=== PATIENT | male | born 1940 | race African-American/Black ===

== ENCOUNTER 2017-03-08 14:06 | Emergency (ER) | payer MEDICARE, MEDICAID ==
[~2017-03-08] VITALS: Ht 172.7 cm; Wt 81.6 kg
[~2017-03-08 14:06] MED LIST: ARICEPT10 MG GT; LOPRESSOR25 M1 GT; LORAZEPAM0.5 MG GT; LUPRON DEPOT7.5 MG IM; NAMENDA5 MG GT
[2017-03-08 14:24] VITALS: BP 129/63
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
[2017-03-08 15:00] VITALS: BP 129/63
--- NOTE | 2017-03-09 10:23 | Diagnostic Imaging Report ---
Indication: TUBE PLCMT Technique: Supine view of the abdomen after injection of water-soluble contrast into gastrostomy Comparison: none Findings: Contrast opacifies the stomach. No contrast extravasation is demonstrated. The bowel gas pattern is unremarkable. Bowel gas pattern is unremarkable. No unusual masses or calcifications. Impression: Satisfactory position of gastrostomy tube This agrees with the preliminary interpretation provided overnight by [employer].
== END 2017-03-08 15:30 ==
LOC: EDBD 14:06 → EMR 15:30
DX: K94.23 Gastrostomy malfunction (principal); I10 Essential (primary) hypertension; Z85.9 Personal history of malignant neoplasm, unspecified; F03.90 Unspecified dementia, unspecified severity, without behavioral disturbance, psychotic disturbance, mood disturbance, and anxiety; Z87.820 Personal history of traumatic brain injury
CPT/HCPCS: 43760; 74000; 99284

== ENCOUNTER 2017-05-09 11:00 | Emergency (ER) | payer MEDICARE, OTHER ==
[~2017-05-09] VITALS: Ht 182.9 cm; Wt 77.1 kg
[2017-05-09] MEDS ORDERED: LUPRON DEPOT7.5 MG IM (11:11)
[2017-05-09] MEDS ORDERED: CRANBERRY500 M3 GT (11:11)
[2017-05-09] MEDS ORDERED: DONEPEZIL HCL5 MG GT (11:11)
[2017-05-09 11:13] VITALS: BP 152/58
[2017-05-09] MEDS ORDERED: COLACE100 MG GT (11:13)
[2017-05-09] MEDS ORDERED: CLARITIN10 M2 ORAL (11:13)
[2017-05-09] MEDS ORDERED: TRAMADOL HCL50 MG ORAL (11:15)
[2017-05-09] MEDS ORDERED: GLUCOSAMINE MS480 ML GT (11:15)
[2017-05-09] MEDS ORDERED: IBUPROFEN600 MG GT (11:18)
[2017-05-09] MEDS ORDERED: TRAMADOL HCL50 MG GT (11:18)
[2017-05-09] MEDS ORDERED: ACETAMINOPHEN325 M1 GT (11:18)
[2017-05-09] MEDS ORDERED: TAMSULOSIN HCL0.4 MG ORAL (11:18)
[2017-05-09] MEDS ORDERED: AMBIEN5 MG GT (11:19)
[2017-05-09 12:22] VITALS: BP 120/65
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
[2017-05-09 12:41] VITALS: BP 122/67
[2017-05-09 13:49] VITALS: BP 129/74
--- NOTE | 2017-05-10 10:38 | Diagnostic Imaging Report ---
Indication: Assess gastric tube placement Comparison: 03/08/2017 Findings: Single view of the abdomen is obtained. Reportedly, 50 cc of Gastrografin was injected via the indwelling gastrostomy tube. Abdomen x-ray shows contrast within the stomach lumen and within the gastrostomy tube. No extravasation of contrast is seen outside of the stomach lumen. There is a nonobstructive bowel gas pattern. Impression: Gastrostomy tube appears in good position with injected contrast in the stomach.
== END 2017-05-09 13:53 ==
LOC: EDBD 11:00 → EMR 11:23
DX: K94.23 Gastrostomy malfunction (principal); I10 Essential (primary) hypertension; Z85.46 Personal history of malignant neoplasm of prostate; F01.50 Vascular dementia, unspecified severity, without behavioral disturbance, psychotic disturbance, mood disturbance, and anxiety
CPT/HCPCS: 43760; 74000; 99283; Q9963

== ENCOUNTER 2017-07-13 12:54 | Emergency (ER) | payer MEDICARE, OTHER ==
[~2017-07-13] VITALS: Ht 182.9 cm; Wt 79.4 kg
[~2017-07-13 12:54] MED LIST changes: +ACETAMINOPHEN325 M1 GT; +AMBIEN5 MG GT; +CLARITIN10 M2 ORAL; +COLACE100 MG GT; +CRANBERRY500 M3 GT; +DONEPEZIL HCL5 MG GT; +GLUCOSAMINE MS480 ML GT; +IBUPROFEN600 MG GT; +TAMSULOSIN HCL0.4 MG ORAL; +TRAMADOL HCL50 MG GT; +TRAMADOL HCL50 MG ORAL
--- NOTE | 2017-07-13 13:56 | Diagnostic Imaging Report ---
Indication: Colostomy tube replaced Technique: XRAY Abdomen 1v; 30 cc of nondilated Gastrografin was injected via the gastrostomy tube. Comparison: 05/09/2017 Findings: Contrast is noted within the stomach lumen and within the gastrostomy tube. No extravasation of contrast is seen outside the stomach lumen. Gas pattern is nonobstructed. Imaged lower lungs are grossly clear. No acute osseous abnormality appreciated. Impression: Gastrostomy tube appears in good position with injected contrast in the stomach. No extravasation of contrast noted.
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
[2017-07-13 15:00] VITALS: BP 123/85
[2017-07-13 15:30] VITALS: BP 123/85
== END 2017-07-13 15:30 ==
LOC: EDBD 12:54 → EMR 13:41
DX: K94.23 Gastrostomy malfunction (principal); I10 Essential (primary) hypertension; Z85.46 Personal history of malignant neoplasm of prostate; Z87.820 Personal history of traumatic brain injury; F01.50 Vascular dementia, unspecified severity, without behavioral disturbance, psychotic disturbance, mood disturbance, and anxiety
CPT/HCPCS: 43760; 74018; 99283; Q9963

== ENCOUNTER 2017-10-27 13:31 | Emergency (ER) | payer MEDICARE, OTHER ==
[~2017-10-27] VITALS: Ht 188 cm; Wt 90.7 kg
[2017-10-27] MEDS ORDERED: Gastrograffin 30ml ORAL ONE (13:45)
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
[2017-10-27 14:15] VITALS: BP 110/65
--- NOTE | 2017-10-27 14:22 | Diagnostic Imaging Report ---
Indication: Gastrostomy tube check Comparison: None Single view of the abdomen obtained Findings: Contrast was instilled through the indwelling gastrostomy. The tip is projected over the mid body of the stomach in good position. There is contrast noted in the stomach without evidence of extravasation. IMPRESSION: Unremarkable gastrostomy check
== END 2017-10-27 14:16 | disposition home or self-care (01) ==
LOC: EDBD 13:31 → EDUNIT# 13:31 → EMR 14:01
DX: K94.23 Gastrostomy malfunction (principal); Y83.3 Surgical operation with formation of external stoma as the cause of abnormal reaction of the patient, or of later complication, without mention of misadventure at the time of the procedure; I10 Essential (primary) hypertension; Z85.46 Personal history of malignant neoplasm of prostate; F03.90 Unspecified dementia, unspecified severity, without behavioral disturbance, psychotic disturbance, mood disturbance, and anxiety; Z87.820 Personal history of traumatic brain injury
CPT/HCPCS: 43760; 74018; 99284; Q9963

== ENCOUNTER 2017-12-28 12:13 | Emergency (ER) | payer MEDICARE, OTHER ==
[~2017-12-28] VITALS: Ht 188 cm; Wt 77.1 kg
[2017-12-28 12:48] VITALS: BP 113/68
[2017-12-28 14:15] VITALS: BP 118/68
--- NOTE | 2017-12-28 15:00 | Diagnostic Imaging Report ---
Indication: Gastrostomy check Comparison: None Single view of the abdomen obtained Findings: Gastrostomy tip is in the body of the stomach. There is contrast in the stomach lumen. IMPRESSION: Gastrostomy in good position. No leak
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
== END 2017-12-28 14:15 | disposition home or self-care (01) ==
LOC: EMR 13:05
DX: Z43.1 Encounter for attention to gastrostomy (principal); I10 Essential (primary) hypertension; F01.50 Vascular dementia, unspecified severity, without behavioral disturbance, psychotic disturbance, mood disturbance, and anxiety; Z87.820 Personal history of traumatic brain injury; Z85.46 Personal history of malignant neoplasm of prostate
CPT/HCPCS: 74018; 99283

== ENCOUNTER 2018-02-18 13:18 | Emergency (ER) | payer MEDICARE, OTHER ==
[~2018-02-18] VITALS: Ht 167.6 cm; Wt 72.6 kg
--- NOTE | 2018-02-18 14:49 | Diagnostic Imaging Report ---
Indication: Gastrostomy tube replacement Technique: XRAY Abdomen 1v Comparison: 12/28/2017 Findings: Injected contrast opacifies the stomach. No extraluminal extravasation of contrast identified. Bowel gas pattern is nonspecific. Imaged lung bases grossly clear. No acute osseous abnormality. Impression: Gastrostomy tube tip in the stomach. No extraluminal extravasation of contrast identified.
[2018-02-18 15:19] VITALS: BP 141/71
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
== END 2018-02-18 15:32 ==
LOC: EDBD 13:18 → EMR 13:58
DX: K94.29 Other complications of gastrostomy (principal); I10 Essential (primary) hypertension; Z85.46 Personal history of malignant neoplasm of prostate; Z87.820 Personal history of traumatic brain injury; F01.50 Vascular dementia, unspecified severity, without behavioral disturbance, psychotic disturbance, mood disturbance, and anxiety
CPT/HCPCS: 74018; 99283

== ENCOUNTER 2018-04-13 13:59 | Emergency (ER) | payer MEDICARE, OTHER ==
[~2018-04-13] VITALS: Ht 175.3 cm; Wt 77.1 kg
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
[2018-04-13 14:38] VITALS: BP 124/76
--- NOTE | 2018-04-13 14:57 | Diagnostic Imaging Report ---
Indication: Status post gastrostomy tube placement Technique: Supine view of the upper abdomen after injection of water-soluble contrast into gastrostomy Comparison: 02/18/2018 Findings: Contrast opacifies the stomach and proximal duodenum. No contrast extravasation is demonstrated. The bowel gas pattern is unremarkable. No significant change Impression: Satisfactory position of gastrostomy tube
[2018-04-13 15:13] VITALS: BP 124/76
== END 2018-04-13 15:13 | disposition home or self-care (01) ==
LOC: EDBD 13:59 → EMR 14:30
DX: K94.23 Gastrostomy malfunction (principal); Y84.8 Other medical procedures as the cause of abnormal reaction of the patient, or of later complication, without mention of misadventure at the time of the procedure; I10 Essential (primary) hypertension; I25.10 Atherosclerotic heart disease of native coronary artery without angina pectoris; F03.90 Unspecified dementia, unspecified severity, without behavioral disturbance, psychotic disturbance, mood disturbance, and anxiety; Z86.73 Personal history of transient ischemic attack (TIA), and cerebral infarction without residual deficits
CPT/HCPCS: 43760; 74018; 99284; Q9963

== ENCOUNTER 2018-05-03 11:38 | Emergency (ER) | payer MEDICARE, OTHER ==
[~2018-05-03] VITALS: Ht 188 cm; Wt 81.6 kg
[2018-05-03 11:43] VITALS: BP 116/69
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
[2018-05-03 13:00] VITALS: BP 122/80
== END 2018-05-03 13:00 ==
LOC: EDBD 11:38 → EMR 12:25
DX: K94.23 Gastrostomy malfunction (principal); Y83.3 Surgical operation with formation of external stoma as the cause of abnormal reaction of the patient, or of later complication, without mention of misadventure at the time of the procedure; Y92.9 Unspecified place or not applicable; I10 Essential (primary) hypertension; Z87.820 Personal history of traumatic brain injury; F01.50 Vascular dementia, unspecified severity, without behavioral disturbance, psychotic disturbance, mood disturbance, and anxiety
CPT/HCPCS: 99284

== ENCOUNTER 2018-07-11 13:58 | Emergency (ER) | payer MEDICARE, OTHER ==
[~2018-07-11] VITALS: Ht 193 cm; Wt 104.3 kg
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
[2018-07-11 14:20] VITALS: BP 135/69
--- NOTE | 2018-07-11 14:34 | NUR ---
ED Nurse Note: 16fr gtube was placed back into the pt's gtube site by Dr. Bangura. No complaints of pain. Placed dry dressing. Awaiting xray to confirm placement.
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
--- NOTE | 2018-07-11 14:59 | NUR ---
ED Nurse Note: Called radiology about xray order. Awaiting for arrival.
--- NOTE | 2018-07-11 15:18 | NUR ---
ED Nurse Note: Xray at the bedside.
[2018-07-11 15:56] VITALS: BP 133/65
[2018-07-11 16:33] VITALS: BP 126/65
--- NOTE | 2018-07-11 16:35 | NUR ---
ED Nurse Note: Discharge instructions given to pt's daughter. Answered all questions. Verbalized undertsanding. No acute distress noted. ID band removed. Left ER w/ all belongings and w/ daughter via private vehicle.
--- NOTE | 2018-07-12 12:38 | Diagnostic Imaging Report ---
Indication: Abdominal pain Comparison: 04/13/2018 Single view of the abdomen obtained Findings: Bowel gas pattern is nonspecific. Gastrostomy tube is noted. No mass, ectopic calcifications, or abnormal gas collections are identified. The bones are unremarkable. Impression: No acute findings
== END 2018-07-11 16:36 | disposition home or self-care (01) ==
LOC: EDBD 13:58 → EDUNIT# 13:58 → EMR 15:49
DX: Z43.1 Encounter for attention to gastrostomy (principal); I10 Essential (primary) hypertension; F03.90 Unspecified dementia, unspecified severity, without behavioral disturbance, psychotic disturbance, mood disturbance, and anxiety; Z85.46 Personal history of malignant neoplasm of prostate; Z91.041 Radiographic dye allergy status; Z86.79 Personal history of other diseases of the circulatory system
CPT/HCPCS: 74018; 99284

== ENCOUNTER 2018-10-30 14:18 | Emergency (ER) | payer MEDICARE, OTHER ==
[~2018-10-30] VITALS: Ht 172.7 cm; Wt 77.1 kg
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
--- NOTE | 2018-10-30 14:32 | NUR ---
ED Nurse Note: Pt came to ED via ambulance from [facility], pt a&o x2, pt pulled out G-tube. Pt denies pain, sob, VSS, awaiting orders
--- NOTE | 2018-10-30 14:49 | NUR ---
ED Nurse Note: Dr Gray inserted 16F gtube without complication. daughter refusing contrast to confirm placement. Dr Gray aware. ABD xray taken
[2018-10-30 14:57] VITALS: BP 135/78
--- NOTE | 2018-10-30 15:32 | Diagnostic Imaging Report ---
EXAM: XR Abdomen, 1 View CLINICAL HISTORY: TUBE PLCMT TECHNIQUE: Frontal supine view of the abdomen/pelvis. COMPARISON: No relevant prior studies available. FINDINGS: Gastrointestinal tract: Unremarkable bowel gas pattern. Bones/joints: Fixation hardware related to the right femur/hip. Tubes, lines and devices: Percutaneous G-tube projecting over the abdomen. IMPRESSION: Percutaneous G-tube projecting over the abdomen.
[2018-10-30 16:33] VITALS: BP 147/77
--- NOTE | 2018-10-30 16:35 | NUR ---
ER DISCHARGE NOTE: Patient is cleared to be discharged per ERMD, pt is aox2, on room air, with stable vital signs. pt was given dc instructions,family was able to verbalize understanding, pt id band removed. pt taken back to facilty via BLS ambulance. pt took all belongings.
[2018-10-30 16:37] VITALS: BP 147/77
== END 2018-10-30 16:35 | disposition home or self-care (01) ==
LOC: EDBD 14:18 → EMR 14:48
DX: K94.29 Other complications of gastrostomy (principal); I10 Essential (primary) hypertension; Z85.46 Personal history of malignant neoplasm of prostate; B20 Human immunodeficiency virus [HIV] disease; F01.50 Vascular dementia, unspecified severity, without behavioral disturbance, psychotic disturbance, mood disturbance, and anxiety; Z87.820 Personal history of traumatic brain injury; Z86.73 Personal history of transient ischemic attack (TIA), and cerebral infarction without residual deficits; Z91.041 Radiographic dye allergy status
CPT/HCPCS: 51702; 74018; 99283

== ENCOUNTER 2018-12-03 23:58 | Emergency (ER) | payer MEDICARE, OTHER ==
[~2018-12-03] VITALS: Ht 177.8 cm; Wt 104.3 kg
[2018-12-04 00:20] VITALS: BP 129/76
--- NOTE | 2018-12-04 00:20 | NUR ---
ER Nurse Note: Pt CRISTINA by [facility] from [facility] for G-tube replacement. Per EMS, g-tube removed at 2200 size 20g. Pt nonverbal, VSS, no signs of distress. Wiil continue to montior.
--- NOTE | 2018-12-04 00:35 | NUR ---
ER Nurse Note: G-tube replaced; size 18G; flushed and awaiting x-ray confirmation. Pt tolerated well; will continue to monitor.
--- NOTE | 2018-12-04 01:41 | Diagnostic Imaging Report ---
EXAM: XR Abdomen, 2 Views CLINICAL HISTORY: TUBE PLCMT TECHNIQUE: Frontal view of the abdomen/pelvis with upright view of the abdomen. COMPARISON: Abdomen radiograph dated 11/30/18. FINDINGS: Gastrointestinal tract: Unremarkable. No dilation. Bones/joints: Unremarkable. Tubes, lines and devices: There is contrast opacifying the stomach from injection into a PEG tube. The PEG tube is therefore in position. IMPRESSION: PEG tube in position with contrast opacifying the stomach.
[2018-12-04 02:30] VITALS: BP 132/86
--- NOTE | 2018-12-04 02:30 | NUR ---
ER Nurse Note: Contacted [facility]; Nursing Internet Security Specialist is aware of pt going back to facility. Pt has an 18Fr gauage G-Tube inplace with x-ray confirmation. Daughter at bedside. All orders completed per ERMD orders. Daughter was handed discharge paperwork and signed discharge forms. Pt left with all belongings.
--- NOTE | 2018-12-04 05:37 | Emergency Room Report ---
History of Present Illness General Chief Complaint: Malfunctioning Gastric Tube Source: Family Member, Medical Record Present Illness HPI 78-year-old male presents ED for evaluation. [facility] Pulled out G-tube tonight at facility. She has dementia. Nonverbal at baseline. No reported signs of distress on arrival. No nausea or vomiting. Unable to provide any additional history at this time. No other aggravating relieving factors. Denies any other associated symptoms Allergies: Uncoded Allergies: CONTRAST (Adverse Reaction, Mild, Hives, 05/04/18) Patient History Past Medical History: HTN, dementia, other - prostate cancer Pertinent Family History: none Social History: Denies: smoking, alcohol use, drug use Reviewed Nursing Documentation: PMH: Agreed; PSxH: Agreed Nursing Documentation-PMH Hx Cardiac Problems: Yes Hx Hypertension: Yes Hx Cancer: Yes - malignant neoplasm of prostate Hx Gastrointestinal Problems: Yes - G-tube Hx Neurological Problems: Yes - dementia Hx Dementia: Yes - vascular dementia Hx Neurologic Surgery: Yes - evacuation of hematoma Review of Systems All Other Systems: negative except mentioned in HPI Physical Exam Vital Signs Date Time Temp Pulse Resp B/P (MAP) Pulse Ox O2 Delivery O2 Flow Rate FiO2 12/04/18 00:01 97.9 78 18 129/76 (93) 95 Room Air Sp02 EP Interpretation: reviewed, normal General Appearance: other - nonverbal Head: normocephalic Eyes: bilateral eye normal inspection, bilateral eye PERRL ENT: normal ENT inspection Neck: normal inspection Respiratory: chest non-tender, lungs clear, normal breath sounds, speaking full sentences Cardiovascular #1: regular rate, rhythm, no edema Gastrointestinal: normal bowel sounds, non tender, soft, non-distended, no guarding, no rebound, other - Gtube site C/D/I Rectal: deferred Genitourinary: no CVA tenderness Musculoskeletal: normal inspection Neurologic: other - nonverbal Psychiatric: normal inspection, other - nonverbal Skin: normal inspection Lymphatic: normal inspection Procedures Additional Procedure Procedure Narrative G-tube placement Patient placed on stretcher. Old G-tube is removed by deflating the balloon using syringe. G-tube site is inspected with no contraindications to G-tube placement. G-tube slowly inserted until resistance is met; G-tube balloon is slowly filled with 20 mL of normal saline and slowly retracted back until resistance is met. G-tube placement is confirmed with KUB study using Gastrografin Medical Decision Making Diagnostic Impression: Primary Impression: Malfunction of gastrostomy tube ER Course Hospital Course 78-year-old male presents to ED for G-tube placement. Pulled out G-tube at snf Clinical course Patient placed on stretcher. After initial history and physical I replaced G- tube and inflate the balloon. G-tube placement confirmed with KUB study. Patient remained stable without any signs of distress. [facility] called and patient subsequently discharged back to facility. Dr Guillen made aware that G-tube was successfully replaced and patient return to facility Diagnosis - malfunction of G tube stable and discharged back to facility. Followup with PMD. Return to ED if symptoms recur or worsen Other X-Ray Diagnostic Results Other X-Ray Diagnostic Results : X-Ray ordered: KUB # of Views/Limited Vs Complete: 1 View Indication: Other - Gtube placement EP Interpretation: Yes Interpretation: nonspecific bowel gas, no sbo, other - Gtube in place with no extravasation Impression: Other - Gtube in place Electronically Signed by: Electronically signed by Clyde Bravo MD Last Vital Signs Date Time Temp Pulse Resp B/P (MAP) Pulse Ox O2 Delivery O2 Flow Rate FiO2 12/04/18 02:30 97.9 82 16 132/86 98 Room Air Status: improved Disposition: XFER SNF Condition: Stable Patient Instructions: Gastrostomy Tube Home Guide, Adult Clyde Bravo MD Dec 04, 2018 05:37
== END 2018-12-04 02:30 ==
LOC: EDUNIT# 23:58 → EDBD 23:58 → EMR 12-04 00:48
DX: K94.23 Gastrostomy malfunction (principal); F03.90 Unspecified dementia, unspecified severity, without behavioral disturbance, psychotic disturbance, mood disturbance, and anxiety; Z91.041 Radiographic dye allergy status; I10 Essential (primary) hypertension; Z85.46 Personal history of malignant neoplasm of prostate
CPT/HCPCS: 74018; 99283